=== PATIENT | male | born 1980 | race Caucasian/White ===

== ENCOUNTER 2020-03-03 12:38 | Emergency (ER) | payer MEDICARE, OTHER ==
[~2020-03-03] VITALS: Ht 193 cm; Wt 149.7 kg
[2020-03-03] MEDS ORDERED: MIRTAZAPINE15 MG PO (13:06)
[2020-03-03] MEDS ORDERED: LAMOTRIGINE200 MG PO (13:06)
== END 2020-03-03 13:29 | disposition home or self-care (01) ==
LOC: ED 12:38
DX: I80.02 Phlebitis and thrombophlebitis of superficial vessels of left lower extremity (principal); F17.200 Nicotine dependence, unspecified, uncomplicated; Z79.899 Other long term (current) drug therapy
CPT/HCPCS: 99283; A9270

== ENCOUNTER 2023-11-15 15:01 | Emergency (ER) | payer MEDICARE, OTHER ==
[~2023-11-15] VITALS: Ht 193 cm; Wt 168.2 kg
[~2023-11-15 15:01] MED LIST: LAMOTRIGINE200 MG PO; MIRTAZAPINE15 MG PO
[2023-11-15] MEDS ORDERED: MIRTAZAPINE45 MG PO (15:23)
[2023-11-15] MEDS ORDERED: LOSARTAN POTASS50 MG PO (15:23)
[2023-11-15] MEDS ORDERED: METOPROLOL SUC100 MG PO (15:23)
[2023-11-15 16:06] VITALS: BP 111/79
== END 2023-11-15 16:03 | disposition home or self-care (01) ==
LOC: ED 15:01
DX: I80.3 Phlebitis and thrombophlebitis of lower extremities, unspecified (principal); I10 Essential (primary) hypertension; F17.200 Nicotine dependence, unspecified, uncomplicated; Z79.899 Other long term (current) drug therapy
CPT/HCPCS: 99283